=== PATIENT | female | born 1945 | race Asian ===

== ENCOUNTER 2017-07-17 10:03 | Emergency (ER) | payer SELFPAY ==
[2017-07-17] MEDS ORDERED: Ondansetron INJ* 2 MG/ML VIAL IV ONE (11:43)
[2017-07-17] MEDS ORDERED: Ketorolac INJ* 30 MG/ML 1 ML VIAL IV PUSH ONE (11:44)
[2017-07-17 12:13] LABS: ABS Basophils 0 10^3/ul (0-0.2); ABS Eosinophils 0 10^3/ul (0-0.6); ABS Lymphocytes 1.3 10^3/ul (1.0-4.8); ABS Monocytes 0.5 10^3/ul (0-0.8); ABS Neutrophils 6.4 10^3/ul (1.5-7.7); ABS Nucleated RBC 0 10^3/ul; Eosinophil % 0.3 % (0-6); Hematocrit 35 % (35-47); Hemoglobin 11.9 g/dl (12.0-16.0); Lymphocyte % 15.2 % (25-47); Mean Corpuscular HGB Conc 34 g/dl (31-36); Mean Corpuscular Hemoglobin 32 pg (27-31); Mean Corpuscular Volume 95 fL (80-97); Mean Platelet Volume 6.7 um3 (7.4-10.4); Nucleated Red Blood Cells % 0; Platelet Count 313 10^3/ul (150-450); Red Blood Count 3.72 10^6/ul (4.0-5.4); Red Cell Distribution Width 13 % (10.5-15); White Blood Count 8.3 10^3/ul (3.5-10.8)
[2017-07-17 12:22] LABS: INR 1.1 (0.77-1.02)
[2017-07-17 12:30] LABS: EGFR Non-African American 90.1 (>60)
[2017-07-17] MEDS ORDERED: Iohexol 300* (CONTRAST) 10 ML SDV IV ONE (12:32)
--- NOTE | 2017-07-17 13:03 | RAD ---
HISTORY: Left facial pain, fever COMPARISONS: None TECHNIQUE: Multiple contiguous axial CT scans were obtained of the face without intravenous contrast, with coronal and sagittal multiplanar reformations. FINDINGS: BONES: There is no displaced fracture or dislocation. The orbital rim is intact. The zygomatic arch is intact. The pterygoid plates are intact. ORBITS: The globes are round. The optic nerves are symmetric. The extraocular musculature is normal. There is no post septal or intraconal inflammatory change. There is no retrobulbar hematoma. PARANASAL SINUSES: There is mild mucosal thickening of ethmoid air cells. There is a small air-fluid level within the sphenoid sinus. The nasal septum is deviated to the right. BRAIN AND SOFT TISSUE: Unremarkable. OTHER: Degenerative changes are noted cervical spine. IMPRESSION: MILD SINUS MUCOSAL INFLAMMATORY DISEASE, WITH AN AIR-FLUID LEVEL IN THE SPHENOID SINUS. IN THE CORRECT CLINICAL SETTING, THIS MAY REPRESENT ACUTE SINUSITIS
--- NOTE | 2017-07-17 13:06 | RAD ---
HISTORY: Left facial pain, fever, neck pain COMPARISONS: None TECHNIQUE: Multiple contiguous axial CT scans were obtained of the neck after the administration of nonionic intravenous contrast, with coronal and sagittal multiplanar reformations. FINDINGS: BRAIN AND ORBITS: The visualized brain and orbits are normal. PARANASAL SINUSES: As noted on CT of the face, there is a small fluid level within the sphenoid sinus. SALIVARY GLANDS: The parotid glands, submandibular glands, sublingual glands are normal. NASAL CAVITY/NASOPHARYNX: The nasal cavity and nasopharynx are normal. ORAL CAVITY/OROPHARYNX: The oral cavity is obscured by streak artifact from dental amalgam. The visualized oral cavity and oropharynx are unremarkable. LARYNGEAL APPARATUS/HYPOPHARYNX: The laryngeal apparatus and hypopharynx are normal. UPPER AIRWAY/UPPER ESOPHAGUS: The visualized upper airway and esophagus are normal. LUNG APICES: The lung apices are clear. THYROID GLAND: The thyroid gland is heterogeneous LYMPH NODES: There is no lymphadenopathy by size criteria. VASCULATURE: The vasculature is unremarkable. BONES AND SOFT TISSUES: There is straightening of the cervical lordosis. Degenerative changes are noted most pronounced at C5-C6 and C6-C7. OTHER: None. IMPRESSION: 1. MILD SINUS MUCOSAL INFLAMMATORY DISEASE, WITH AN AIR-FLUID LEVEL IN THE SPHENOID SINUS. IN THE CORRECT CLINICAL SETTING, THIS MAY REPRESENT ACUTE SINUSITIS. 2. HETEROGENEOUS THYROID. 3. NO LYMPHADENOPATHY BY SIZE CRITERIA.
[2017-07-17] MEDS ORDERED: DOXYcycline IV* 100 MG in NS 0.9% 250 ML* 250 ML IVPB ONE (13:33)
[2017-07-17] MEDS ORDERED: Ondansetron ODT TAB* 4 MG PO ONE (13:34)
--- NOTE | 2017-07-17 13:53 | RAD ---
HISTORY: Fever, chest pain COMPARISONS: None VIEWS: 1: frontal portable view of the chest at 1:17 PM FINDINGS: LINES AND TUBES: None. CARDIOMEDIASTINAL SILHOUETTE: The cardiomediastinal silhouette is normal for portable technique. PLEURA: The costophrenic angles are sharp. No pleural abnormalities are noted. LUNG PARENCHYMA: There is hyperinflation. ABDOMEN: The upper abdomen is clear. There is no subphrenic gas. BONES AND SOFT TISSUES: No bone or soft tissue abnormalities are noted. IMPRESSION: HYPERINFLATION. NO ACTIVE CARDIOPULMONARY DISEASE.
--- NOTE | 2017-07-17 14:38 | ED ---
Nick Stallworth Natalie, scribed for Arnoldo Kearns MD on 07/17/17 at 1227 . Neck Pain - HPI Summary HPI Summary: The patient is a 71 y/o F presenting to the ED accompanied by and son-in -law c/o posterior and bilateral neck pain and fever starting on 07/13/17. On , the pt started having a sore throat, has since persisted. She also had a headache and vomited once at this time. Starting 07/13/17, the pt had neck and low back pain, and pain in her bilateral ribs/diaphragm with associated fever. Her left mandible also starting swelling at this time, and she was still having intermittent posterior and occipital headaches. The pain is rated 7/10 in severity. The pain worsens with deep breaths, sitting up, and movement, and is alleviated by rest. She has taken Tylenol to treat the pain to some relief when sleeping. Pt additionally c/o loss of appetite, nausea, SOB with ambulation. She states that when she eats, the nausea gets worse, so her intake has been low. Pt denies diarrhea. She visited [facility] two days ago, where she was given Augmentin. She was stung by a yellow jacket on 07/02/17. - History of Current Complaint Chief Complaint: EDDentalPain Stated Complaint: NECK/JAW PAIN Hx Obtained From: Patient Onset/Duration Of Injury/Symptoms: Days Timing: Constant Onset/Duration: Started days ago, Still Present Severity Initially: Moderate Severity Currently: Moderate Pain Intensity: 7 Pain Scale Used: 0-10 Numeric Location: Diffuse Aggravating Factors: Movement, Other: - sitting up, deep breaths Alleviating Factors: Other: - rest, Tylenol Associated Signs & Symptoms: Positive: Negative - diarrhea, Headache - Allergies/Home Medications Allergies/Adverse Reactions: Allergies Allergy/AdvReac Type Severity Reaction Status Date / Time aspirin Allergy Unknown Verified 07/17/17 10:10 Reaction Details Home Medications: Home Medications Amoxicillin/Clavulanate TAB* [Augmentin TAB 875*] 875 mg PO BID 07/17/17 [ History Confirmed 07/17/17] Teprenone 50 mg PO TID 07/17/17 [History Confirmed 07/17/17] PMH/Surg Hx/FS Hx/Imm Hx Endocrine/Hematology History: Denies: Hx Diabetes Cardiovascular History: Denies: Hx Hypertension Infectious Disease History: No Infectious Disease History: Reports: Traveled Outside the [place] in Last 30 Days - [place] - Family History Known Family History: Negative: Respiratory Disease Review of Systems Positive: Sore Throat Positive: Shortness Of Breath - with ambulation Positive: Vomiting, Nausea, Other - loss of appetite, low intake. Negative: Diarrhea Positive: Other - swelling in left mandible, lower back pain, neck pain, bilateral rib pain Positive: Headache - posterior and occipital All Other Systems Reviewed And Are Negative: Yes Physical Exam - Summary Physical Exam Summary: Appearance: Well-appearing, Well-nourished Skin: Warm. No rashes. No petechiae. Eyes: Normal Head: Left mandibular swelling with mild tenderness to palpation ENT: Normal Neck: Supple, nontender. Minimally decreased ROM in neck Respiratory: Clear to auscultation Cardiovascular: Normal S1, S2. No murmurs. Normal distal pulses in tibial and radial bilaterally. Abdomen: Soft, nontender Musculoskeletal: Normal, Strength/ROM Intact Neurological: Normal, A&Ox3, Negative Kernig's and Brudzinski's signs Psychiatric: Normal General: No acute distress Triage Information Reviewed: Yes Vital Signs On Initial Exam: Initial Vitals Temp Pulse Resp BP Pulse Ox 99.2 F 85 14 122/69 97 07/17/17 10:11 07/17/17 10:11 07/17/17 10:11 07/17/17 10:11 07/17/17 10:11 Vital Signs Reviewed: Yes Diagnostics - Vital Signs Vital Signs Temp Pulse Resp BP Pulse Ox 07/17/17 10:11 99.2 F 85 14 122/69 97 - Laboratory Lab Results: Lab Results 07/17/17 07/17/17 07/17/17 Range/Units 11:59 11:59 11:59 WBC 8.3 (3.5-10.8) 10^3/ul RBC 3.72 L (4.0-5.4) 10^6/ul Hgb 11.9 L (12.0-16.0) g/dl Hct 35 (35-47) % MCV 95 (80-97) fL MCH 32 H (27-31) pg MCHC 34 (31-36) g/dl RDW 13 (10.5-15) % Plt Count 313 (150-450) 10^3/ul MPV 6.7 L (7.4-10.4) um3 Neut % (Auto) 77.5 (38-83) % Lymph % (Auto) 15.2 L (25-47) % [place] % (Auto) 6.4 (0-7) % Eos % (Auto) 0.3 (0-6) % Baso % (Auto) 0.6 (0-2) % Absolute Neuts (auto) 6.4 (1.5-7.7) 10^3/ul Absolute Lymphs (auto) 1.3 (1.0-4.8) 10^3/ul Absolute Monos (auto) 0.5 (0-0.8) 10^3/ul Absolute Eos (auto) 0 (0-0.6) 10^3/ul Absolute Basos (auto) 0 (0-0.2) 10^3/ul Absolute Nucleated RBC 0 10^3/ul Nucleated RBC % 0 INR (Anticoag Therapy) 1.10 H (0.77-1.02) APTT 29.3 (26.0-36.3) seconds Sodium 133 L (139-145) mmol/L Potassium 3.6 (3.5-5.0) mmol/L Chloride 96 L (101-111) mmol/L Carbon Dioxide 30 (22-32) mmol/L Anion Gap 7 (2-11) mmol/L BUN 11 (6-24) mg/dL Creatinine 0.65 (0.51-0.95) mg/dL Est GFR ( Amer) 115.9 (>60) Est GFR (Non-Af Amer) 90.1 (>60) BUN/Creatinine Ratio 16.9 (8-20) Glucose 106 H (70-100) mg/dL Lactic Acid (0.5-2.0) mmol/L Calcium 9.2 (8.6-10.3) mg/dL Total Bilirubin 0.40 (0.2-1.0) mg/dL AST 11 L (13-39) U/L ALT 4 L (7-52) U/L Alkaline Phosphatase 51 (34-104) U/L Total Protein 8.5 (6.4-8.9) g/dL Albumin 3.6 (3.2-5.2) g/dL Globulin 4.9 H (2-4) g/dL Albumin/Globulin Ratio 0.7 L (1-3) /18/18 Range/Units 11:59 WBC (3.5-10.8) 10^3/ul RBC (4.0-5.4) 10^6/ul Hgb (12.0-16.0) g/dl Hct (35-47) % MCV (80-97) fL MCH (27-31) pg MCHC (31-36) g/dl RDW (10.5-15) % Plt Count (150-450) 10^3/ul MPV (7.4-10.4) um3 Neut % (Auto) (38-83) % Lymph % (Auto) (25-47) % [place] % (Auto) (0-7) % Eos % (Auto) (0-6) % Baso % (Auto) (0-2) % Absolute Neuts (auto) (1.5-7.7) 10^3/ul Absolute Lymphs (auto) (1.0-4.8) 10^3/ul Absolute Monos (auto) (0-0.8) 10^3/ul Absolute Eos (auto) (0-0.6) 10^3/ul Absolute Basos (auto) (0-0.2) 10^3/ul Absolute Nucleated RBC 10^3/ul Nucleated RBC % INR (Anticoag Therapy) (0.77-1.02) APTT (26.0-36.3) seconds Sodium (139-145) mmol/L Potassium (3.5-5.0) mmol/L Chloride (101-111) mmol/L Carbon Dioxide (22-32) mmol/L Anion Gap (2-11) mmol/L BUN (6-24) mg/dL Creatinine (0.51-0.95) mg/dL Est GFR ( Amer) (>60) Est GFR (Non-Af Amer) (>60) BUN/Creatinine Ratio (8-20) Glucose (70-100) mg/dL Lactic Acid 0.9 (0.5-2.0) mmol/L Calcium (8.6-10.3) mg/dL Total Bilirubin (0.2-1.0) mg/dL AST (13-39) U/L ALT (7-52) U/L Alkaline Phosphatase (34-104) U/L Total Protein (6.4-8.9) g/dL Albumin (3.2-5.2) g/dL Globulin (2-4) g/dL Albumin/Globulin Ratio (1-3) Result Diagrams: 07/17/17 11:59 07/17/17 11:59 Lab Statement: Any lab studies that have been ordered have been reviewed, and results considered in the medical decision making process. - Radiology CXR Xray Interpretation: Positive (See Comments) - Hyperinflation. No active cardiopulmonary disease. ED physician has reviewed this report. Radiology Interpretation Completed By: Radiologist - CT Neck CT CT Interpretation: Positive (See Comments) - 1. Mild sinus mucosal inflammatory disease, with an air-fluid level in the sphenoid sinus. In the correct clinical setting, this may represent acute sinusitis. 2. Heterogeneous thyroid. 3. No lymphadenopathy by size criteria. ED physician has reviewed this report. CT Interpretation Completed By: Radiologist Maxillofacial CT CT Interpretation: Positive (See Comments) - Mild sinus mucosal inflammatory disease, with an air-fluid level in the sphenoid sinus. In the correct clinical setting, this may represent acute sinusitis. ED physician has reviewed this report. CT Interpretation Completed By: Radiologist Re-Evaluation - Re-Evaluation First Eval Change: Improved - improved currently after medications Neck Course/Dx - Course Assessment/Plan: No obvious soft tissue neck infection or deep space infection on CT, evidence of sinusitis and possible dental abscess versus soft tissue swelling around left mandible. Patient is not tolerating Augmentin well, I switched him to bite to doxycycline and gave one dose here in the ED. Patient instructed to follow up with dentist, to use caution in the sun when taking doxycycline for sun sensitivity, and to return to the emergency department for any worsening or concerning symptoms. Normal range of motion of the neck without stiffness. Patient agrees and understands discharge instructions. - Diagnoses Provider Diagnoses: Dental abscess, Sinusitis Discharge - Sign-Out/Discharge Documenting (check all that apply): Discharge/Admit/Transfer - ankle, eyes note , is 3 - Discharge Plan Condition: Improved Disposition: HOME Prescriptions: DOXYcycline CAP(*) [DOXYcycline 100MG CAP(*)] 100 mg PO BID #20 cap Ondansetron ODT TAB* [Zofran 4 MG Odt TAB*] 4 mg PO Q8H PRN #10 tab.odt PRN Reason: Nausea Patient Education Materials: Dental Abscess (ED), Sinusitis (ED) Referrals: No Primary Care Phys,NOPCP [Primary Care Provider] - Additional Instructions: PLEASE DISCONTINUE AUGMENTIN AND START DOXYCYCLINE TONIGHT. PLEASE WEAR SUNSCREEN AND USE CAUTION WHEN IN THE SUN, IT CAN CAUSE SUN SENSITIVITY PLEASE MAKE AN APPOINTMENT FIRST THING IN THE MORNING TO BE SEEN BY A DENTIST WITHIN 3 DAYS PLEASE RETURN TO THE EMERGENCY ROOM IF YOU HAVE ANY WORSENING OR CONCERNING SYMPTOMS PLEASE MAKE AN APPOINTMENT FIRST THING IN THE MORNING TO BE SEEN BY YOUR PRIMARY CARE DOCTOR WITHIN 1 WEEK - Billing Disposition and Condition Condition: IMPROVED Disposition: HOME The documentation as recorded by the Nick patterson Natalie accurately reflects the service I personally performed and the decisions made by me, Arnoldo Kearns MD.
[2017-07-17 14:59] VITALS: BP 136/75
== END 2017-07-17 15:14 | disposition home or self-care (01) ==
LOC: ED 10:03
DX: K04.7 Periapical abscess without sinus (principal); J32.9 Chronic sinusitis, unspecified; R50.9 Fever, unspecified; R07.9 Chest pain, unspecified
CPT/HCPCS: 36415; 70486; 70491; 71045; 80053; 83605; 85025; 85610; 85730; 96360; 96374; 96375; 99283; A9270-GY; J1885; J2405; Q9967

== ENCOUNTER 2017-07-20 11:18 | Emergency (ER) | payer SELFPAY ==
[2017-07-20 11:33] VITALS: BP 118/72
--- NOTE | 2017-07-20 12:54 | UC ---
Dotty Stallworth Emily, scribed for BiDesean calderon MD on 07/20/17 at 1212 . Neck Pain HPI - HPI Summary HPI Summary: In Room: This patient is a 71 year old F presenting to [facility] accompanied by son in with a chief complaint of bilateral neck pain that began 07/14/2017. The patient rates the pain 9/10 in severity. Symptoms aggravated by movement. Symptoms alleviated by nothing. Patient reports recent weight loss, nausea, vomiting, decreased appetite, bilateral flank pain, and abd pain upon deep inspiration. Patient denies cough and urinary symptoms. Pt denies having similar symptoms previously. Son in reports pt being [place], and has only been visiting the [place] for the last month and a half. MD: Vital signs stable. Afebrile. Pt seen on 07/17/2017, extensive workup with CT of a neck and head, as well as a CXR. The diagnosis in the ED was sinusitis, possible dental abscess. The pt was changed from Augmentin to doxycycline. Lab work showed slight anemia and a sodium of 133. Nurses: Seen at [facility] Thursday, started on Augmentin for infection jaw. Not better , seen in ER Thursday for body aches, neck pain. Started on anti-biotics. Symptoms not better, wants testing for lyme disease. Loss of appetite, intermittent fever, lethargy. Neck pain, headache, back pain. Pain worse with movement. - History of Current Complaint Chief Complaint: UCGeneralIllness Stated Complaint: FEVER, AND LETHARGY Time Seen by Provider: 07/20/17 11:50 Hx Obtained From: Patient ?: No Onset/Duration Of Injury/Symptoms: Days Mechanism Of Injury: No Known Trauma Timing: Constant Onset/Duration: Lasting Days Severity: Severe Pain Intensity: 9 Pain Scale Used: 0-10 Numeric Aggravating Factors: Nothing Alleviating Factors: Nothing - Allergies/Home Medications Allergies/Adverse Reactions: Allergies Allergy/AdvReac Type Severity Reaction Status Date / Time aspirin Allergy Unknown Verified 07/20/17 11:32 Reaction Details PMH/Surg Hx/FS Hx/Imm Hx Previously Healthy: Yes Endocrine History: Other Other Endocrine History: Negative diabetes Cardiovascular History: Other Other Cardiovascular History: Negative HTN - Surgical History Surgical History: None - Family History Known Family History: Negative: Respiratory Disease - Social History Occupation: Retired Lives: With Family Alcohol Use: None Substance Use Type: None Smoking Status (MU): Never Smoked Tobacco Review Of Systems Respiratory: Positive: Other - Negative cough Gastrointestinal: Positive: Vomiting, Other - Positive decreased appetite, recent weight loss, bilateral flank pain, and abd pain upon deep inspiration Genitourinary: Positive: Negative Musculoskeletal: Positive: Other: - Positive neck pain All Other Systems Reviewed And Are Negative: Yes Physical Exam - Summary Physical Exam Summary: Appearance: The patient is well-appearing, is in no pain distress, and is well- nourished. Eyes: Conjunctiva are clear. ENT: The hearing is grossly normal, the pharynx is normal, and the TMs are normal. There is no muffled or hoarse voice. Neck: POINTING TO THE RIGHT TRAPEZIUS MUSCLE. PAIN CAN BE PRECIPITATED BY MOVING HEAD TO THE LEFT. NO CAROTID SWELLING. NO ADENOPATHY. Respiratory: The chest is nontender. The lungs are clear, there are normal breath sounds, and there is no respiratory distress. Cardiovascular: Heart is regular rate and rhythm. There is no murmur. Abdomen: The abdomen is soft and nontender. There is no organomegaly. Bowel sounds: present Musculoskeletal: Strength is intact. The patient moves all extremities. Neurological: The patient is alert. Psychological: The patient displays age appropriate behavior Skin: Negative for rashes. Triage Information Reviewed: Yes Vital Signs: Initial Vital Signs Temp 99.8 F 07/20/17 11:24 Pulse 73 07/20/17 11:24 Resp 16 07/20/17 11:24 BP 118/72 07/20/17 11:24 Pulse Ox 99 07/20/17 11:24 Vital Signs Reviewed: Yes Neck Pain Course/Dx - Course Course Of Treatment: I spoke with the pt who is from [facility], and will be returning in 10 day, as well as her close relative who speaks Georgian and is a tree wrapper. They are concerned because of continued neck, chest, and mandible discomfort. On physical examination, the most prominent sign is the tenderness over the right trapezius muscle in the paracervical region with palpation. There is a slight tenderness to palpation inside the mouth on the lower, left mandible near the angle. However there is no parotid swelling or tenderness and there is no evident adenopathy. I was more concerned to learn in the last few weeks the patient has had significant weight loss as well as intermittent nausea and vomiting. She does show a slight anemia and is pale. Notice made of a temperature of 99.8. After extensive conversation with the pt and her relative , we decided on further blood testing to rule out a subclinical inflammation that might affect her muscles. Obviously the differential may be something simple or complex and her recent weight loss is concerning. 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 Because the patient is going back to [facility], she could not find primary care at [facility]. The patient understands that the goal of her visit here is to further narrow down the differential. Normal BP reading and no follow-up instructions required. Medications have been included in the original chart and reviewed. - Differential Dx/Diagnosis Differential Dx/HQI/PQRI: Neoplasm, Other - Subclinical infection, immune mediated illness; fibromyalgia Provider Diagnoses: weight loss, intermittent nausea/vomiting, myalgia, and fatigue; unclear etiology Discharge - Sign-Out/Discharge Documenting (check all that apply): Discharge/Admit/Transfer - Discharge Plan Condition: Stable Disposition: HOME Patient Education Materials: Lyme Disease (ED), Autoimmune Disease (ED) Referrals: No Primary Care Phys,NOPCP [Primary Care Provider] - Ron Lyons MD [Medical Doctor] - Additional Instructions: PLEASE SEEK CARE AT THE EMERGENCY DEPARTMENT IF SYMPTOMS WORSEN OR IF NEW SYMPTOMS DEVELOP. FOLLOW UP WITH PRIMARY CARE PHYSICIAN. WE DISCUSSED: 1. Your diagnosis is not clear at this time. 2. Multiple blood tests have been drawn because you don't have a primary care doctor and you are returning to [facility] in 10 days. The results of this testing will help narrow down the diagnosis. 3. This condition may simply resolve or may require further evaluation and treatment. 4. Call in 3-5 days for results. IF tests are negative, we usually don't call. 5. Go to ED for any acute elevation in temperature or new pain or difficult breathing or swallowing. 6. If you tests are not normal, follow up with Dr. Lyons. He would be an appropriate physician to follow up on muscle pain. - Billing Disposition and Condition Condition: STABLE Disposition: HOME The documentation as recorded by the Dotty patterson Emily accurately reflects the service I personally performed and the decisions made by me, Desean Lindsay MD.
--- NOTE | 2017-07-21 07:11 | UC ---
- Progress Note Progress Note: July 21, 2017 0700 Preliminary results for the patient I examined yesterday: ESR: 102 CPK: 133.44 Amylase: NL Lipase, elevated: 93 ? pancreatitis; inflammation c/w elevated ESR and CPK Patient needs to be called and re-evaluated. Desean Lindsay MD Discharge - Sign-Out/Discharge Documenting (check all that apply): Post-Discharge Follow Up - Discharge Plan Condition: Stable Disposition: HOME Patient Education Materials: Lyme Disease (ED), Autoimmune Disease (ED) Referrals: No Primary Care Phys,NOPCP [Primary Care Provider] - Ron Lyons MD [Medical Doctor] - Additional Instructions: PLEASE SEEK CARE AT THE EMERGENCY DEPARTMENT IF SYMPTOMS WORSEN OR IF NEW SYMPTOMS DEVELOP. FOLLOW UP WITH PRIMARY CARE PHYSICIAN. WE DISCUSSED: 1. Your diagnosis is not clear at this time. 2. Multiple blood tests have been drawn because you don't have a primary care doctor and you are returning to [facility] in 10 days. The results of this testing will help narrow down the diagnosis. 3. This condition may simply resolve or may require further evaluation and treatment. 4. Call in 3-5 days for results. IF tests are negative, we usually don't call. 5. Go to ED for any acute elevation in temperature or new pain or difficult breathing or swallowing. 6. If you tests are not normal, follow up with Dr. Lyons. He would be an appropriate physician to follow up on muscle pain. - Billing Disposition and Condition Condition: STABLE Disposition: HOME
--- NOTE | 2017-07-21 07:19 | UC ---
- Progress Note Progress Note: RN to call pt ezequiel. Encourage pt to go to the ED. Discharge - Sign-Out/Discharge Documenting (check all that apply): Post-Discharge Follow Up - Discharge Plan Condition: Stable Disposition: HOME Patient Education Materials: Lyme Disease (ED), Autoimmune Disease (ED) Referrals: No Primary Care Phys,NOPCP [Primary Care Provider] - Ron Lyons MD [Medical Doctor] - Additional Instructions: PLEASE SEEK CARE AT THE EMERGENCY DEPARTMENT IF SYMPTOMS WORSEN OR IF NEW SYMPTOMS DEVELOP. FOLLOW UP WITH PRIMARY CARE PHYSICIAN. WE DISCUSSED: 1. Your diagnosis is not clear at this time. 2. Multiple blood tests have been drawn because you don't have a primary care doctor and you are returning to [facility] in 10 days. The results of this testing will help narrow down the diagnosis. 3. This condition may simply resolve or may require further evaluation and treatment. 4. Call in 3-5 days for results. IF tests are negative, we usually don't call. 5. Go to ED for any acute elevation in temperature or new pain or difficult breathing or swallowing. 6. If you tests are not normal, follow up with Dr. Lyons. He would be an appropriate physician to follow up on muscle pain. - Billing Disposition and Condition Condition: STABLE Disposition: HOME
== END 2017-07-20 12:58 | disposition home or self-care (01) ==
LOC: UCEAST 11:18
DX: M79.1 Myalgia (principal); R11.2 Nausea with vomiting, unspecified; R63.4 Abnormal weight loss; R53.83 Other fatigue; M54.2 Cervicalgia; R63.8 Other symptoms and signs concerning food and fluid intake; R10.9 Unspecified abdominal pain; R50.9 Fever, unspecified; J32.9 Chronic sinusitis, unspecified; D64.9 Anemia, unspecified; R51 Headache; M54.9 Dorsalgia, unspecified; Z88.6 Allergy status to analgesic agent
CPT/HCPCS: 36415; 82150; 83690; 85652; 86038; 86140; 86431; 86618; 99211; G0463

== ENCOUNTER 2017-07-21 09:36 | Observation (INO) | payer SELFPAY ==
[2017-07-21] MEDS ORDERED: NS 0.9% 1000 ML* 1,000 ML IV ONE (11:38)
[2017-07-21] MEDS ORDERED: Ketorolac INJ* 30 MG/ML 1 ML VIAL IV ONE (11:38)
[2017-07-21 12:01] LABS: ABS Basophils 0 10^3/ul (0-0.2); ABS Eosinophils 0.1 10^3/ul (0-0.6); ABS Lymphocytes 1.6 10^3/ul (1.0-4.8); ABS Monocytes 0.5 10^3/ul (0-0.8); ABS Neutrophils 5.2 10^3/ul (1.5-7.7); ABS Nucleated RBC 0 10^3/ul; Eosinophil % 0.8 % (0-6); Hematocrit 32 % (35-47); Hemoglobin 10.5 g/dl (12.0-16.0); Lymphocyte % 22.2 % (25-47); Mean Corpuscular HGB Conc 33 g/dl (31-36); Mean Corpuscular Hemoglobin 32 pg (27-31); Mean Corpuscular Volume 95 fL (80-97); Nucleated Red Blood Cells % 0; Platelet Count 368 10^3/ul (150-450); Red Blood Count 3.32 10^6/ul (4.0-5.4); Red Cell Distribution Width 13 % (10.5-15); White Blood Count 7.4 10^3/ul (3.5-10.8)
[2017-07-21] MEDS ORDERED: Metoclopramide IV* 5 MG/ML 2 ML VIAL IV ONE (12:07)
[2017-07-21 12:22] LABS: EGFR Non-African American 88.5 (>60)
[2017-07-21] MEDS ORDERED: Iohexol 300* (CONTRAST) 10 ML SDV IV ONE (13:35)
--- NOTE | 2017-07-21 14:14 | RAD ---
Indication: Abdominal pain. Contrast: Administered 69.1 ml of OMNIPAQUE 300 mg/ml CT of the abdomen and pelvis was performed after oral and IV contrast administration. Coronal and sagittal reconstructed images were obtained. The lung bases demonstrate no pleural fluid, nodules or masses. Cardiomegaly without evidence of pericardial effusion is noted. There is a nodule in the periphery of the left lower lobe measuring approximately 3 mm. Scarring is noted in the left base. The liver is normal in size. Ovoid low density lesion likely representing bilobed cyst measures up to 15 mm in the dome of the right lobe of liver. Low density lesion in the medial segment of left lobe measures 7 mm. No other focal lesions are identified. The gallbladder demonstrates no calcified gallstones. No pericholecystic fluid or wall thickening is noted. The spleen is normal in size. No adrenal lesions are noted. The kidneys demonstrate no evidence of hydronephrosis. No retroperitoneal lymphadenopathy is noted. Aorta and inferior vena cava are unremarkable. There is a distended urinary bladder noted. The ovaries and uterus are unremarkable. The urinary bladder is unremarkable. No hernias are identified. The appendix is not visualized. No evidence of intestinal obstruction is noted. IMPRESSION: Diverticulosis without definite evidence of diverticulitis. The appendix is not visualized. No evidence of bowel obstruction is noted.
[2017-07-21 14:27] LABS: Urine Appearance Clear; Urine Blood 1+ (Negative); Urine Color Straw; Urine Ketones Negative (Negative); Urine Protein Negative (Negative); Urine Specific Gravity 1.002 (1.010-1.030); Urine Urobilinogen Negative (Negative)
[2017-07-21] MEDS ORDERED: Acetaminophen TAB* 325 MG PO PRN (15:23)
[2017-07-21] MEDS ORDERED: Ibuprofen TAB* 600 MG PO PRN (15:23)
--- NOTE | 2017-07-21 15:38 | ED ---
Micaela Stallworth Gabriel scribed for Howie Bloom MD on 07/21/17 at 1141 . Abdominal Pain/Female - HPI Summary HPI Summary: This patient is a 71 year old F presenting to [facility] after being contacted by for her abnormal labs today. Pt was seen at yesterday for nausea and facial swelling, there they took her blood. The pt was also seen in the ED recently for the same symptoms, patient reports having v/n, low grade fever, back pain, neck pain, and some jaw swelling, most have resolved. The doctor is concerned for pancreatitis. The patient rates the pain 8/10 in severity. She is currently having right sided ABD pain and nausea after meals. Patient denies rash, night sweats, coughing up blood, and significant weight loss. Pt was concerned for lymes disease. Pt has been on doxycycline. - History of Current Complaint Chief Complaint: EDGeneral Stated Complaint: ABD PAIN Time Seen by Provider: 07/21/17 11:18 Hx Obtained From: Patient Onset/Duration: Still Present Timing: Constant Severity Initially: Severe Severity Currently: Severe Pain Intensity: 8 Pain Scale Used: 0-10 Numeric Location: Discrete At: RUQ Radiates: No Allergies/Adverse Reactions: Allergies Allergy/AdvReac Type Severity Reaction Status Date / Time aspirin Allergy Unknown Verified 07/20/17 11:32 Reaction Details PMH/Surg Hx/FS Hx/Imm Hx Endocrine/Hematology History: Denies: Hx Diabetes Cardiovascular History: Denies: Hx Hypertension Respiratory History: Denies: Hx Chronic Obstructive Pulmonary Disease (COPD) History: Denies: Hx Acute Renal Failure, Hx Renal Disease Musculoskeletal History: Denies: Hx Arthritis, Hx Rheumatoid Arthritis, Hx Back Problems, Hx Bursitis Infectious Disease History: No Infectious Disease History: Denies: Traveled Outside the [place] in Last 30 Days - Family History Known Family History: Negative: Respiratory Disease - Social History Lives: With Family Alcohol Use: None Substance Use Type: Reports: None Smoking Status (MU): Never Smoked Tobacco Review of Systems Negative: Skin Diaphoresis Negative: Cough Positive: Abdominal Pain - RUQ , Nausea Negative: Rash All Other Systems Reviewed And Are Negative: Yes Physical Exam - Summary Physical Exam Summary: VITAL SIGNS: Reviewed. GENERAL: Patient is a elderly and fragile female who is lying comfortable in the stretcher. Patient is not in any acute respiratory distress. HEAD AND FACE: No signs of trauma. No ecchymosis, hematomas or skull depressions. No sinus tenderness. EYES: PERRLA, EOMI x 2, No injected conjunctiva, no nystagmus. EARS: Hearing grossly intact. Ear canals and tympanic membranes are within normal limits. MOUTH: Oropharynx within normal limits. NECK: Supple, trachea is midline, no adenopathy, no JVD, no carotid bruit, no c- spine tenderness, neck with full ROM. CHEST: Symmetric, no tenderness at palpation LUNGS: Clear to auscultation bilaterally. No wheezing or crackles. CVS: Regular rate and rhythm, S1 and S2 present, no murmurs or gallops appreciated. ABDOMEN: Soft, TTP in the RUQ and right rib cage EXTREMITIES: FROM in all major joints, no edema, no cyanosis or clubbing. NEURO: Alert and oriented x 3. No acute neurological deficits. Speech is normal and follows commands. SKIN: Dry and warm Triage Information Reviewed: Yes Vital Signs On Initial Exam: Initial Vitals Temp Pulse Resp BP Pulse Ox 98.6 F 65 16 133/81 96 07/21/17 09:42 07/21/17 09:42 07/21/17 09:42 07/21/17 09:42 07/21/17 09:42 Vital Signs Reviewed: Yes Diagnostics - Vital Signs Vital Signs Temp Pulse Resp BP Pulse Ox 07/21/17 09:42 98.6 F 65 16 133/81 96 - Laboratory Lab Results: Lab Results 07/21/17 07/21/17 07/21/17 Range/Units 11:49 11:49 11:49 WBC 7.4 (3.5-10.8) 10^3/ul RBC 3.32 L (4.0-5.4) 10^6/ul Hgb 10.5 L (12.0-16.0) g/dl Hct 32 L (35-47) % MCV 95 (80-97) fL MCH 32 H (27-31) pg MCHC 33 (31-36) g/dl RDW 13 (10.5-15) % Plt Count 368 (150-450) 10^3/ul MPV 7.0 L (7.4-10.4) um3 Neut % (Auto) 70.4 (38-83) % Lymph % (Auto) 22.2 L (25-47) % Wright % (Auto) 6.1 (0-7) % Eos % (Auto) 0.8 (0-6) % Baso % (Auto) 0.5 (0-2) % Absolute Neuts (auto) 5.2 (1.5-7.7) 10^3/ul Absolute Lymphs (auto) 1.6 (1.0-4.8) 10^3/ul Absolute Monos (auto) 0.5 (0-0.8) 10^3/ul Absolute Eos (auto) 0.1 (0-0.6) 10^3/ul Absolute Basos (auto) 0 (0-0.2) 10^3/ul Absolute Nucleated RBC 0 10^3/ul Nucleated RBC % 0 Sodium 134 L (139-145) mmol/L Potassium 3.7 (3.5-5.0) mmol/L Chloride 98 L (101-111) mmol/L Carbon Dioxide 29 (22-32) mmol/L Anion Gap 7 (2-11) mmol/L BUN 12 (6-24) mg/dL Creatinine 0.66 (0.51-0.95) mg/dL Est GFR ( Amer) 113.9 (>60) Est GFR (Non-Af Amer) 88.5 (>60) BUN/Creatinine Ratio 18.2 (8-20) Glucose 93 (70-100) mg/dL Lactic Acid 0.9 (0.5-2.0) mmol/L Calcium 9.2 (8.6-10.3) mg/dL Magnesium (1.9-2.7) mg/dL Total Bilirubin 0.50 (0.2-1.0) mg/dL AST 11 L (13-39) U/L ALT 5 L (7-52) U/L Alkaline Phosphatase 51 (34-104) U/L Total Creatine Kinase (10-223) U/L C-Reactive Protein 122.20 H (< 5.00) mg/L Total Protein 8.9 (6.4-8.9) g/dL Albumin 3.4 (3.2-5.2) g/dL Globulin 5.5 H (2-4) g/dL Albumin/Globulin Ratio 0.6 L (1-3) Amylase (29-103) U/L Lipase 97 H (11.0-82.0) U/L Urine Color Urine Appearance Urine pH (5-9) Ur Specific Orwell (1.010-1.030) Urine Protein (Negative) Urine Ketones (Negative) Urine Blood (Negative) Urine Nitrate (Negative) Urine Bilirubin (Negative) Urine Urobilinogen (Negative) Ur Leukocyte Esterase (Negative) Urine WBC (Auto) (Absent) Urine RBC (Auto) (Absent) Urine Bacteria (Absent) Urine Glucose (Negative) 07/21/17 07/21/17 Range/Units 11:49 14:10 WBC (3.5-10.8) 10^3/ul RBC (4.0-5.4) 10^6/ul Hgb (12.0-16.0) g/dl Hct (35-47) % MCV (80-97) fL MCH (27-31) pg MCHC (31-36) g/dl RDW (10.5-15) % Plt Count (150-450) 10^3/ul MPV (7.4-10.4) um3 Neut % (Auto) (38-83) % Lymph % (Auto) (25-47) % Wright % (Auto) (0-7) % Eos % (Auto) (0-6) % Baso % (Auto) (0-2) % Absolute Neuts (auto) (1.5-7.7) 10^3/ul Absolute Lymphs (auto) (1.0-4.8) 10^3/ul Absolute Monos (auto) (0-0.8) 10^3/ul Absolute Eos (auto) (0-0.6) 10^3/ul Absolute Basos (auto) (0-0.2) 10^3/ul Absolute Nucleated RBC 10^3/ul Nucleated RBC % Sodium (139-145) mmol/L Potassium (3.5-5.0) mmol/L Chloride (101-111) mmol/L Carbon Dioxide (22-32) mmol/L Anion Gap (2-11) mmol/L BUN (6-24) mg/dL Creatinine (0.51-0.95) mg/dL Est GFR ( Amer) (>60) Est GFR (Non-Af Amer) (>60) BUN/Creatinine Ratio (8-20) Glucose (70-100) mg/dL Lactic Acid (0.5-2.0) mmol/L Calcium (8.6-10.3) mg/dL Magnesium 2.1 (1.9-2.7) mg/dL Total Bilirubin (0.2-1.0) mg/dL AST (13-39) U/L ALT (7-52) U/L Alkaline Phosphatase (34-104) U/L Total Creatine Kinase 29 (10-223) U/L C-Reactive Protein (< 5.00) mg/L Total Protein (6.4-8.9) g/dL Albumin (3.2-5.2) g/dL Globulin (2-4) g/dL Albumin/Globulin Ratio (1-3) Amylase 63 (29-103) U/L Lipase (11.0-82.0) U/L Urine Color Straw Urine Appearance Clear Urine pH 6.0 (5-9) Ur Specific Orwell 1.002 L (1.010-1.030) Urine Protein Negative (Negative) Urine Ketones Negative (Negative) Urine Blood 1+ A (Negative) Urine Nitrate Negative (Negative) Urine Bilirubin Negative (Negative) Urine Urobilinogen Negative (Negative) Ur Leukocyte Esterase Negative (Negative) Urine WBC (Auto) Absent (Absent) Urine RBC (Auto) Trace(0-2/hpf) (Absent) Urine Bacteria Absent (Absent) Urine Glucose Negative (Negative) Result Diagrams: 07/21/17 11:49 07/21/17 11:49 Lab Statement: Any lab studies that have been ordered have been reviewed, and results considered in the medical decision making process. - CT ABD/Pelvis CT CT Interpretation Completed By: Radiologist - Diverticulosis without definite evidence of diverticulitis. The appendix is not visualized. No evidence of bowel obstruction is noted. ED physician has reviewed this radiology report. - EKG 11:59 Cardiac Rate: Bradycardia EKG Rhythm: Sinus Bradycardia - at 59 BPM EKG Interpretation: No ST elevations Abdominal Pain Fem Course/Dx - Course Course Of Treatment: This patient is a 71-year-old female who presents to the emergency room with a chief complaint of having right upper quadrant pain right rib cage pain for the last 2 weeks. Patient has also complained of neck pain. Patient has multiple visits to the emergency department and urgent care. Last visit to the urgent care was yesterday and she was called to come to the emergency room because the patient has pancreatitis. The patient continues to have nausea, intermittent fevers, and the above symptoms. Blood tests results shows normochromic anemia, CRP of 122, and lipase of 97. The patient continues to have nausea and no appetite. The patient has multiple visits and continues to deteriorate. Therefore I believe that the patient would benefit from admission for further workup. I discuss my physical exam, findings and test results with Dr. Brooks from the hospitalist services and he agrees to admit patient to his services. Patient is hemodynamically stable alert and oriented x 3. - Diagnoses Provider Diagnoses: Nausea, Abdominal pain - Provider Notifications Discussed Care Of Patient With: Prerna Brooks Time Discussed With Above Provider: 14:35 Instructed by Provider To: Admit As Inpatient Discharge - Sign-Out/Discharge Documenting (check all that apply): Discharge/Admit/Transfer - admitted - Discharge Plan Condition: Fair Disposition: ADMITTED TO [facility] Referrals: No Primary Care Phys,NOPCP [Primary Care Provider] - - Billing Disposition and Condition Condition: FAIR Disposition: [facility] [place] The documentation as recorded by the Micaela patterson Gabriel accurately reflects the service I personally performed and the decisions made by me, Howie Bloom MD.
[2017-07-21] MEDS ORDERED: predniSONE TAB* 20 MG PO ONE ×2 (15:46→17:45)
[2017-07-21] MEDS: DOXYcycline CAP(*) 100 MG PO SCH (22:17)
[2017-07-21] MEDS: Heparin VIAL(*) 5000 UNITS/ML VIAL (FIVE THOUSAND) SUBCUT SCH (22:22)
--- NOTE | 2017-07-21 22:29 | HP ---
HISTORY AND PHYSICAL: DATE OF ADMISSION: 07/21/17 TIME OF EVALUATION: 02:50 p.m. PRIMARY CARE PROVIDER: None. CHIEF COMPLAINT: "We were told to come to the ED " as per son-in-law. HISTORY OF PRESENT ILLNESS: Mrs. John is a 71-year-old lady with no significant past medical history, who is visiting from [place]. The patient came to [place] in April and had an uneventful stay during May; but on 07/02/17, she was stung by a bee. She had some local reaction and later on she was not feeling well. She describes progressive fatigue, malaise, arthralgias. She also reports neck pain and had left mandible swelling with pain on palpation. On 07/17/17, she came to the ED and she was seen by Dr. Kearns. Actually on 07/15, she was seen at [facility] and she was prescribed Augmentin for a possible dental infection. She continued to have symptoms, then developed a low -grade fever, so on 07/17/17, she came to the emergency room. She had a maxillofacial CT that showed possible sinusitis and a CT of the soft tissues of the neck that showed heterogeneous thyroid, but no significant inflammation at the soft tissues of the neck. The impression was she could have an inflammation of the salivary gland and she was switched from Augmentin to doxycycline. Her symptoms persisted and she went to [facility] on 07/20/17. She continued to complain of neck pain, arthralgias. She also had flank pain and continued to have profound fatigue and low-grade fever at home. There was concern that the patient could have some inflammation including autoimmune disease. Laboratory tests were checked again and she was found to have an ESR of 102 and CRP of 133. So, today she was called and advised to come to the emergency room for further evaluation. The patient is not aware of any weight loss, but her does state that she seems to have lost some weight. She states that her usual weight is 50 kg. There is no diarrhea, but the nausea is persistent with poor oral intake. As the patient's symptoms continued to progress and she has had multiple visits to the emergency room and [facility], the hospitalist service was called for evaluation. The patient denies chest pain, palpitations, shortness of breath, urinary or bowel complaints. She denies visual changes. PAST MEDICAL HISTORY: History of hyperthyroidism more than 20 years ago, now resolved. PAST SURGICAL HISTORY: Cataract extraction. MEDICATION LIST: 1. Ondansetron ODT 4 mg p.o. q.8 hours p.r.n. nausea. 2. Doxycycline 100 mg p.o. b.i.d. ALLERGIES: The patient reports an unknown reaction to ASPIRIN. FAMILY HISTORY: Her mother is alive at 92. Her father in his 70s of gallbladder infection and sisters are healthy. SOCIAL HISTORY: The patient denies alcohol, tobacco or drug use. She lives in [place] and is just visiting family in the area. REVIEW OF SYSTEMS: A 14-point review of systems performed and all other pertinent negatives and positives are in the HPI. PHYSICAL EXAMINATION GENERAL: The patient is a pleasant lady, lying on the ED stretcher. She appears younger than her stated age, but she does appear to be mildly ill. VITAL SIGNS: Temperature 98.6, heart rate is 68, respiratory rate is 16, oxygen saturation is 97% on room air, blood pressure is 147/73. HEENT: Pupils are equal. Pale mucous membranes. CHEST: Breath sounds present bilaterally with no added sounds. CVS: Normal S1, S2. Regular rate and rhythm. ABDOMEN: Soft, nontender, nondistended. Bowel sounds are present. EXTREMITIES: No edema. There is no arthritis or synovitis on physical examination. NEUROLOGIC: She is alert and oriented x3, able to move all 4 extremities. DIAGNOSTIC STUDIES/LABORATORY DATA: The patient had a CBC that showed a WBC of 7.4, hemoglobin of 10.5 (down from 11.9 on 07/17/17), platelets of 368 with an ESR of 102. Chemistry showed a sodium of 134, potassium 3.7, chloride of 98 , bicarb of 29, BUN of 12, creatinine of 0.66, glucose of 93, lactic acid of 0.9 , calcium of 9.2, magnesium of 2.1. LFTs are normal. Actually, her AST and ALT are on the lower side at 11/5. CRP yesterday was 133 and today is 122. Lipase was slightly elevated at 97. Urinalysis showed 1+ blood. Rheumatoid factor was negative. Chest x-ray showed hyperinflation with no active cardiopulmonary disease. Maxillofacial CT showed mild sinus mucosal inflammatory disease with an air- fluid level in the sphenoid sinus. CT of the neck showed heterogenous thyroid and no lymphadenopathy. CT of the abdomen and pelvis without contrast showed diverticulosis without definitive evidence of diverticulitis. No evidence of bowel obstruction. The liver was described as normal in size with some cysts with no other focal lesions. EKG shows sinus bradycardia at 55 beats per minute with no ST-T changes. ASSESSMENT AND PLAN: Mrs. John is a 71-year-old lady with a remote history of hyperthyroidism, who was referred to the emergency room with weeks of fatigue, arthralgia, neck and jaw pain, low-grade fever, anorexia, nausea, found to have elevated ESR and CRP. I suspect the patient may have an autoimmune disease. We are going to check Lyme disease serology, but her symptoms suggest vasculitis especially giant cell arteritis versus Sjogren syndrome. The patient will be admitted for further workup and the consultation was requested with Dr. Lyons. The patient has no visual symptoms, only the left-sided jaw pain, but we feel we should start steroids while the rest of her workup is performed. He recommended starting prednisone 60 mg p.o. daily and he will see her in consultation. I will also check ANCA, YOSEF, anti-SSA and SSB. I am going to continue her doxycycline for now for the possibility of Lyme. DVT prophylaxis. The patient has a score of 2 on the DVT Prophylaxis Assessment Guide and she will be started on subcutaneous heparin. Code status is full. TIME SPENT: Approximately 50 minutes were was spent with the patient, , and son-in-law's interview, medical records review, physical examination to complete this admission; more than half of this time was spent [id number] with the patient in coordination of care. [id number]/[facility] #: [id number] [facility] CENTEREusebio
[2017-07-22] MEDS: Omeprazole CAP* 20 MG PO SCH (05:56)
[2017-07-22] MEDS: Heparin VIAL(*) 5000 UNITS/ML VIAL (FIVE THOUSAND) SUBCUT SCH ×3 (05:56→21:34)
[2017-07-22] MEDS: predniSONE TAB* 20 MG PO SCH (08:42)
[2017-07-22] MEDS: DOXYcycline CAP(*) 100 MG PO SCH ×2 (08:42→21:34)
--- NOTE | 2017-07-22 16:34 | PN ---
Subjective Date of Service: 07/22/17 Interval History: HOSPITALIST PROGRESS NOTE Patient seen and examined at bedside. Care reviewed and d/w Emily Johnson RN. She feels much better today. Arthralgia and neck pain much improved, wants to walk around. Family History: Unchanged from Admission Social History: Unchanged from Admission Past Medical History: Unchanged from Admission Objective Active Medications: Acetaminophen (Tylenol Tab*) 650 mg PO Q6H PRN PRN Reason: pain/fever Doxycycline Hyclate (Vibramycin Cap(*)) 100 mg PO BID [facility] Last Admin: 07/22/17 08:42 Dose: 100 mg Heparin Sodium (Porcine) (Heparin Vial(*)) 5,000 units SUBCUT Q8HR [facility] Last Admin: 07/22/17 14:12 Dose: 5,000 units Ibuprofen (Motrin Tab*) 600 mg PO Q6H PRN PRN Reason: PAIN Omeprazole (Prilosec Cap*) 20 mg PO DAILY@0600 [facility] Last Admin: 07/22/17 05:56 Dose: 20 mg Prednisone (Deltasone Tab*) 60 mg PO DAILY [facility] Last Admin: 07/22/17 08:42 Dose: 60 mg Vital Signs - 8 hr 07/22/17 11:55 Temperature 97.7 F Pulse Rate 59 Respiratory 16 Rate Blood Pressure 123/60 (mmHg) O2 Sat by Pulse 95 Oximetry Oxygen Devices in Use Now: None Appearance: Pleasant lady lying in bed in NAD. Eyes: No Scleral Icterus Ears/Nose/Mouth/Throat: Mucous Membranes Moist Neck: Trachea Midline Respiratory: Symmetrical Chest Expansion and Respiratory Effort, Clear to Auscultation Cardiovascular: NL Sounds; No Murmurs; No JVD, RRR Neurological: Alert and Oriented x 3, NL Muscle Strength and Tone Result Diagrams: 07/21/17 11:49 07/21/17 11:49 Assess/Plan/Problems-Billing Assessment: Mrs. Joseph is a 71yo F visiting from [place], remote h/o hyperthyroidism, who has had progressive weakness, fatigue, arthralgias, neck pain, left jaw pain, found to have ESR 102, CRP 133, suggestive of giant cell arteritis. - Patient Problems (1) Giant cell arteritis syndrome Comment: - Presentation suggestive of GCA, with ESR 102. - Lyme serology negative. - Very good response to steroids. - Awaiting rheumatology consult. - Will arrange Temporal artery biopsy as outpatient. (2) DVT prophylaxis Comment: - SQ heparin. (3) Full code status
--- NOTE | 2017-07-22 18:54 | CONSULT ---
Consult Consult: Ms. John is a 71 year old woman with low grade fever and acute onset of posterior occipital pain and left sided jaw pain and mild left sided temporal discomfort/headaches. I agree that suspicion for giant cell arteritis is moderately high; however she has had no visual complaints, so she may have an uncomplicated course of GCA. Symptoms are also atypical in that she has occipital related pain and a modest clinical improvement on steroids, which I suspect should continue to improve. At this time, we should follow up on serologies ordered. Dr. Brooks, per our discussion, will arrange for a left sided temporal artery biopsy. Continue prednisone at 60mg daily and follow up with me in 1 week for follow up
[2017-07-22] MEDS ORDERED: Ondansetron ODT TAB* 4 MG SL PRN (20:55)
--- NOTE | 2017-07-23 04:24 | CONS ---
CONSULTATION REPORT: DATE OF CONSULT: 07/22/17 CONSULTING PHYSICIAN: Dr. Ramon. REASON FOR CONSULTATION: Evaluate for giant cell arteritis. CHIEF COMPLAINT: Headache. HISTORY OF PRESENT ILLNESS: Ms. John is a 71-year-old woman whose history was obtained in part from the patient, but because her Yi was poor, was also obtained from her family as well as for hospital records. She is visiting from [place] and has tentatively been planning to go back to [place], but she presented with inflammatory symptoms with posterior headaches as well as some right upper quadrant abdominal pain. She initially noted that she was stung by a bee around the . She had a local reaction and she was not feeling well. Then she complained of progressive fatigue, malaise, and arthralgias. She also had some posterior neck pain with some left mandibular swelling and she noted some discomfort which extended to the back of the head as well. On the , she was seen at the [facility] and she was felt to have an upper respiratory infection or possibly dental infection and was prescribed Augmentin. However, she continued to have symptoms with headaches and a low- grade fever, and so on the , she came to the emergency room. She had a maxillofacial CT, which showed possible sinusitis and heterogeneous thyroid, but no significant inflammation of the soft tissues of the neck. It was felt that she might have an inflammatory condition of the salivary gland and she was switched to doxycycline. Her symptoms persisted and she went to the [facility] on the . She continued to have neck pain and arthralgias and also discomfort in her posterior neck region as well as some right flank pain and continued to be very very fatigued with a low-grade fever at home. She was felt to have some kind of inflammatory condition because her sed rate was elevated at 102 and she had an elevated CRP of 133. She therefore came to the emergency center. She also has had some weight loss, but this has been gradual over time. She has had no recent GI symptoms except for some right upper quadrant discomfort. She had a mild elevation of her lipase, but it was not felt that she had pancreatitis. Her symptoms progressed and she came to the emergency room and she was placed on prednisone 60 mg daily because she had the headaches in the setting of elevated inflammatory markers with temporal pain, which was concerning for the possibility of giant cell arteritis. PAST MEDICAL HISTORY: Notable for hyperthyroidism, which is resolved. PAST SURGICAL HISTORY: Includes cataract. MEDICATIONS: Include: 1. Ondansetron as needed for nausea. 2. Doxycycline 100 mg twice daily. ALLERGIES: Include ASPIRIN. FAMILY HISTORY: Notable for her mother being alive at 92. Her father in the 70s of gallbladder infection and sisters are healthy. SOCIAL HISTORY: She denies alcohol, tobacco, or drug use. She lives in [facility] and is just visiting family in the area, who I have discussed her case with, they are veterinarians. REVIEW OF SYSTEMS: General: She has had mild fatigue. Neurologic: She has had headaches as noted above. Musculoskeletal: Generalized arthralgias, but no joint synovitis. Endocrine: No glandular swelling. She does have a history of thyroid condition. : No blood in the urine or stool. Psychiatric : No depression. Skin: No rash. Lymph: No lymph node swelling. Other 14- point review of systems were reviewed and were otherwise negative. PHYSICAL EXAM: Vital Signs: Her temperature initially was 98.6, heart rate 60 , respiratory rate of 18, O2 sat 98% on room air with blood pressure initially of 147/73. In general, pleasant, sitting up, in no acute distress. HEENT: Normocephalic, atraumatic. Pupils are equal, round, and reactive to light and accommodate. Her temporal artery was not prominent. I do not feel any pulsations abnormally and no bruits. Chest: Clear to auscultation bilaterally with no added breath sounds. Cardiovascular Exam: Revealed normal S1 and S2. Regular rate and rhythm. Abdomen: Soft, nontender, and nondistended. Bowel sounds are present with no organomegaly. Extremities: No edema. Musculo- skeletal: No arthritis. There is no synovitis and no joint warmth. Neurologic : She was alert and oriented x3. Able to move all 4 extremities. : No CVA tenderness. Endocrine: No glandular swelling. Lymph: No lymph nodes swelling. DIAGNOSTIC STUDIES/LAB DATA: She had a white count of 7.4, hemoglobin of 10.5, platelet count of 368,000 with a sed rate of 102. Chemistry showed a sodium of 134, potassium 3.7. LFTs normal except for the AST and ALT on the lower side. CRP was 133 and then it came down to 122. Lipase was slightly elevated. Urinalysis showed 1+ blood. Rheumatoid factor was negative. Chest x-ray showed hyperinflation with no acute cardiopulmonary disease. Maxillofacial CT showed mild sinus mucosal inflammatory disease with an air- fluid level in the sphenoid sinus. CT of the neck showed heterogeneous thyroid but no adenopathy. CT of the abdomen and pelvis without contrast show diverticulosis without diverticulitis. No evidence of bowel obstruction. The liver was described as normal in size with some cysts with no other focal lesions. EKG shows sinus bradycardia at 55 beats per minute with no ST-T wave changes. ASSESSMENT: Ms. John is a 71-year-old woman with elevated inflammatory markers in the setting of posterolateral headaches with jaw discomfort on the left side and mild jaw claudication without any visual symptoms, but she has also had low-grade fever, nausea and right upper quadrant pain and markedly elevated inflammatory markers. Finally, it was felt that she might have an underlying autoimmune condition, Sjogren's was entertained but given her acuity of symptoms, also consider giant cell arteritis. At this time, she is in part improved on prednisone, which I had recommended on my discussion with Dr. Ramon yesterday. Dr. Ramon and I discussed the case as well with the patient and her family, and the plan is to continue prednisone for now and keep her overnight. I would continue prednisone at 60 mg daily with a gradual taper. However, I would also agree that she needs a temporal artery biopsy and this can be done on the left side as she had symptoms more on the left. Given her history of sinus disease and hematuria, I would also check an ANCA-2 to evaluate for other autoimmune conditions. Discussed potential side effects of prednisone as well as her hospital course and would also follow up on her YOSEF and SSA and SSB antibodies, which I understand were ordered. Also, consider checking a tick-borne panel given the possibility of an underlying arthropod bite followed by a febrile course with low grade fevers. TIME SPENT: Time spent with the patient and the family was greater than 60 minutes with greater than 50% of the time spent counseling the patient and family and coordinating care. [id number]/CPS #: [id number] MEHREEN
[2017-07-23] MEDS: Omeprazole CAP* 20 MG PO SCH (07:37)
[2017-07-23] MEDS: Heparin VIAL(*) 5000 UNITS/ML VIAL (FIVE THOUSAND) SUBCUT SCH (07:37)
[2017-07-23 07:43] VITALS: BP 131/74
[2017-07-23] MEDS: predniSONE TAB* 20 MG PO SCH (08:58)
[2017-07-23] MEDS: DOXYcycline CAP(*) 100 MG PO SCH (08:58)
--- NOTE | 2017-07-24 18:27 | DS ---
CC: Dr. Rizwana Sanford at [facility]; Dr. Lyons; Dr. Harris DISCHARGE SUMMARY: DATE OF ADMISSION: 07/21/17 DATE OF DISCHARGE: 07/23/17 [employer]IC: Dr. Lyons. GENERAL SURGEON: Dr. Harris. DISCHARGE DIAGNOSIS: Probable giant cell arteritis. SECONDARY DIAGNOSES: 1. Remote history of hyperthyroidism. 2. Status post cataract extraction. MEDICATION LIST: 1. Prednisone 60 mg p.o. daily. 2. Ondansetron ODT 4 mg p.o. q.8 hours p.r.n. nausea. 3. Omeprazole 20 mg p.o. daily at 6 a.m. 4. Acetaminophen 650 mg p.o. q.6 hours p.r.n. pain or fever. HOSPITAL COURSE: Mrs. John is a 71-year-old lady with a past medical history as stated above that p resented to the emergency room due to abnormal test results. The patient had had a couple weeks of pr ogressive fatigue, malaise, arthralgias, headache. For more details about her presentation, I refer you to her history and physical. The patient's blood test done at [facility] included elevated ESR of 102 and CRP of 133. She was admitted and the impression was that the patient probably had an autoimmune process most likely giant cell arteritis. She did have some mild bitemporal headache, but most of her headac he was concentrating on the posterior area. She denied any visual changes. The case was discussed with Rheumatology (Dr. Lyons) and he felt it would be prudent to start her on a prednisone since we thought she could have giant cell arteritis. He saw her in consultation on and his impression was that Mrs. John is a 71-year-old woman with elevated inflammatory marke rs in the setting of posterolateral headaches with jaw discomfort on the left side and mild jaw maria isabel ication without any visual symptoms, but she also has had low-grade fever, nausea, right upper quadra nt pain and markedly elevated inflammatory markers. He felt that she might have an underlying autoim mune condition. Sjogren's was entertained, but given the acuity of her symptoms, he would consider g iant cell arteritis. His recommendation was to continue the prednisone 60 mg daily with a gradual ta per as outpatient. He also recommended a temporal artery biopsy. Since her CT as outpatient had radha wn some maxillary sinus disease, he recommended checking ANCA to evaluate for other autoimmune condit ions. He also recommended a tick-borne panel given the possibility of an underlying arthropod bite f ollowing by a febrile course with low-grade fevers. Lyme disease serology was negative, but the tick -borne panel will be ordered as outpatient when the patient goes to the [facility]. At the time of this dictation, the patient's TSH is 1.13. YOSEF, ANCA, SSA, SSB are pending and the re sults should be followed as outpatient. Arrangements were made for the patient to have her temporal artery biopsy done today at [facility] by Dr. Harris and the result also needs to be followed as outpatient. The patient was also found to have a mild elevation of her lipase at 97 (normal 11 to 82). She had a CT of the abdomen and pelvis that showed diverticulosis without definite evidence of diverticulitis. Appendix was not visualized. There was no evidence of bowel obstruction. This was a CT with contr ast and there were no other significant abnormalities described, only incidental findings of the left lower lobe 3 mm nodule, liver cyst. I believe her right upper quadrant pain could be associated wit h the giant cell arteritis. Her LFTs are within normal limits and this mild elevation of the lipase does not represent pancreatitis. The patient had a good response to prednisone, feeling more energy and some improvement of her arthra lgias and especially her neck pain. She will be discharged to follow up with Dr. Lyons and decide i f the prednisone will be tapered before she returns to [facility] or if she will return home with the same dose and then start the taper. She is medically stable for discharge at this time. PHYSICAL EXAMINATION: Vital Signs: Temperature 97.9, heart rate is 58, respiratory rate is 20, oxyg en saturation 97% on room air, blood pressure is 131/74. General: The patient is a pleasant elderly lady, sitting up in bed, in no acute distress. CVS: Normal S1, S2. Regular rate and rhythm. Ches t: Breath sounds present bilaterally with no added sounds. Abdomen is soft with mild right upper qu adrant tenderness. No guarding. No rebound. Bowel sounds are present. Extremities: No edema. David ro: She is alert, oriented x3. Able to move all 4 extremities. DIET: Regular diet. ACTIVITIES: As tolerated. DISPOSITION: To home following the hospital observation. Please keep in mind that this is a summarized version of this patient's hospital stay. If you need m ore information, please feel free to call me at [phone] or please obtain the full medical record s. The patient's family (son-in-law/) were updated at the bedside and I also talked to her floyd bhat over the phone. TIME SPENT: Approximately 45 minutes were spent to complete this discharge. [id number]/CPS #: [id number]
== END 2017-07-23 13:00 | disposition home or self-care (01) ==
LOC: ED 09:36 → MED 15:11
PROVIDERS: ADMIT Internal Medicine; ATTEND Internal Medicine
DX: R53.83 Other fatigue (principal); R53.81 Other malaise; M25.50 Pain in unspecified joint; R51 Headache; R94.4 Abnormal results of kidney function studies; R70.0 Elevated erythrocyte sedimentation rate; Z79.899 Other long term (current) drug therapy; Z88.6 Allergy status to analgesic agent; R68.84 Jaw pain; R10.9 Unspecified abdominal pain; I49.1 Atrial premature depolarization; I51.7 Cardiomegaly
CPT/HCPCS: 36415; 74177; 80053; 81003; 81015; 82150; 82550; 83516; 83605; 83690; 83735; 84443; 85025; 86038; 86140; 86235; 86618; 87040; 93005; 96372; 96374; 96375; 99283; A9270-GY; G0378; J1644; J1885; J2765; J7512; Q9967